=== PATIENT | male | born 1970 | race Caucasian/White ===

== ENCOUNTER → 2018-08-06 | Outpatient (CLI) | payer BC ==
[~2018-08-06] MED LIST: No meds per pt.
== END | disposition home or self-care (01) ==
LOC: STAR 08:14
PROVIDERS: ATTEND Orthopaedic Surgery
DX: Z02.9 Encounter for administrative examinations, unspecified (principal)

== ENCOUNTER 2018-08-15 06:14 | Day surgery (SDC) | payer BC ==
[2018-08-06 09:02] VITALS: BP 145/90
[~2018-08-15] VITALS: Ht 200.7 cm; Wt 174.9 kg
[2018-08-15] MEDS ORDERED: LACTATED RINGERS 1,000 ML IV SCH (07:09)
[2018-08-15 07:10] VITALS: BP 145/90
[2018-08-15] MEDS ORDERED: MIDAZOLAM 1 MG/ML, 2ML ONE (07:14)
[2018-08-15] MEDS ORDERED: FENTANYL PF 250 MCG/5ML ONE (07:14)
[2018-08-15] MEDS ORDERED: PROPOFOL 10 MG/ML, 20ML ONE (07:15)
[2018-08-15] MEDS ORDERED: SODIUM CHLORIDE 0.9% PF 10ML ONE (07:16)
[2018-08-15] MEDS ORDERED: CEFAZOLIN 1,000 MG ONE ×3 (07:16→07:54)
[2018-08-15] MEDS ORDERED: ROPIvacaine/PF 0.5%, 30 ML ONE ×2 (07:46)
[2018-08-15] MEDS ORDERED: LIDOCAINE 1%-EPI 1:100K, 30ML ONE (07:46)
[2018-08-15] MEDS ORDERED: PROMETHAZINE 25 MG SUPP PR PRN (08:00)
[2018-08-15] MEDS ORDERED: LABETALOL 5MG/ML, 20ML IV PRN (08:00)
[2018-08-15] MEDS ORDERED: PROMETHAZINE 25 MG/ML, 1ML IV PRN (08:00)
[2018-08-15] MEDS ORDERED: PROMETHAZINE 12.5 MG SUPP PR PRN (08:00)
[2018-08-15] MEDS ORDERED: PROMETHAZINE 25 MG/ML, 1ML IM PRN ×2 (08:00)
[2018-08-15] MEDS ORDERED: OXYcodone 5 MG/5 ML ORAL.SOL UDC PO PRN (08:00)
[2018-08-15] MEDS ORDERED: MEPERIDINE/PF 25MG/0.5ML IVPush PRN (08:00)
[2018-08-15] MEDS ORDERED: FENTANYL PF 100 MCG/2ML IV PRN (08:00)
[2018-08-15] MEDS ORDERED: ONDANSETRON 2MG/ML, 2ML IV PRN (08:00)
[2018-08-15] MEDS ORDERED: ACETAMINOPHEN 325 MG TABLET PO PRN (08:00)
[2018-08-15] MEDS ORDERED: ONDANSETRON ODT 8 MG PO PRN (08:00)
[2018-08-15] MEDS ORDERED: hydrALAzine 20 MG/ML, 1ML IV PRN (08:00)
[2018-08-15] MEDS ORDERED: HYDROmorphone 2 MG/ML, 1ML IVPush PRN (08:00)
[2018-08-15] MEDS ORDERED: MORPHINE SULFATE 4 MG/ML, 1ML IVPush PRN (08:00)
[2018-08-15] MEDS ORDERED: ACETAMINOPHEN 650 MG/20.3 ML UDC ONE (09:12)
[2018-08-15] MEDS ORDERED: OXYcodone 5 MG/5 ML ORAL.SOL UDC ONE (09:12)
== END 2018-08-15 11:15 | disposition home or self-care (01) ==
LOC: OUT 06:14
PROVIDERS: ATTEND Orthopaedic Surgery
DX: S83.231A Complex tear of medial meniscus, current injury, right knee, initial encounter (principal); S83.281A Other tear of lateral meniscus, current injury, right knee, initial encounter; M94.261 Chondromalacia, right knee; M65.861 Other synovitis and tenosynovitis, right lower leg; M25.861 Other specified joint disorders, right knee; X58.XXXA Exposure to other specified factors, initial encounter; G47.33 Obstructive sleep apnea (adult) (pediatric); Z88.8 Allergy status to other drugs, medicaments and biological substances; Z72.89 Other problems related to lifestyle; Y93.89 Activity, other specified; Y92.89 Other specified places as the place of occurrence of the external cause; Y99.8 Other external cause status
CPT/HCPCS: 29880; J0690; J2250; J2704; J2795; J3010; J3490; J7120